=== PATIENT | female | born 1940 | race Caucasian/White ===

== ENCOUNTER 2017-10-03 10:01 | Outpatient (CLI) | payer MEDICARE, BC ==
--- NOTE | 2017-10-03 12:52 | MRI ---
MRI LUMBAR SPINE NONCONTRAST: HISTORY: Low back pain. Right leg pain. FINDINGS: At the visualized portions of the lower thoracic spine, on the sagittal images, there are prominent d iscogenic endplate changes and desiccation of all the intervertebral disks. Compression of the T10 v ertebral body results in loss of height centrally by greater than 50%. No residual edema is apparent . Mild endplate compressions also involve the inferior T9 and superior T11 endplates. There is mini mal retropulsion without significant compression of the spinal cord at these levels. The conus medullaris is within normal limits. There is desiccation of all the intervertebral disks a nd scattered discogenic endplate changes within the bone marrow of the lumbar spine. T12-L1: Mild disk bulge is present. The thecal sac remains patent. Degenerative changes result in mild stenosis of the central canal. L1-L2: There is disk space narrowing and minimal degenerative retrolisthesis. Posterior disk bulge, along with facet joint hypertrophy and ligamentous thickening, result in mild stenosis of the centra l canal. There is moderate right and severe left foraminal stenoses. L2-L3: Minimal disk bulge is present. The thecal sac and right neural foramen remain patent. Degen erative changes result in severe stenosis of the left neural foramen. L3-L4: There is minimal disk bulge. Osteophytosis involves each facet. The central canal is patent . There is mild right and moderate left foraminal stenosis. L4-L5: Mild disk bulge is present. There is osteophytosis of each facet. Moderate bilateral forami nal stenoses are apparent. The thecal sac is patent. L5-S1: There is minimal disk bulge. Within the right side of the central canal at this level, a nicole tically oriented 2.5 cm cystic lesion projects medially from the right facet. It effaces the right s elizabeth of the thecal sac and markedly compresses the right S1 nerve root origin. The neural foramina ar e patent at this level. IMPRESSION: 1. Large synovial cyst at the right L5-S1 facet, compressing the right S1 nerve root origin. Clinic al correlation regarding the right S1 dermatome is required. 2. Prominent chronic compression of the T10 vertebral body without residual edema. 3. 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 POS: [facility]
== END 2017-10-03 10:02 | disposition home or self-care (01) ==
LOC: SCSMRI 10:01
PROVIDERS: ATTEND Orthopaedic Surgery
DX: M47.26 Other spondylosis with radiculopathy, lumbar region (principal); M79.604 Pain in right leg; M54.30 Sciatica, unspecified side; M71.38 Other bursal cyst, other site; G54.8 Other nerve root and plexus disorders; G95.20 Unspecified cord compression; M99.83 Other biomechanical lesions of lumbar region
CPT/HCPCS: 72148